=== PATIENT | female | born 1955 | race Caucasian/White ===

== ENCOUNTER → 2018-05-20 | Outpatient (CLI) | payer BC ==
[2018-05-20 18:49] LABS: T4, Free (Free Thyroxine) 1.5 ng/dL (0.80-1.80)
== END | disposition home or self-care (01) ==
LOC: LABWHC1 13:31
DX: E03.9 Hypothyroidism, unspecified (principal)
CPT/HCPCS: 36415; 84439; 84443; 84481

== ENCOUNTER → 2018-09-08 | Outpatient (CLI) | payer BC ==
--- NOTE | 2018-09-10 08:25 | MM ---
Reason for exam: screening (asymptomatic). Last mammogram was performed 1 year and 1 month ago. History: Patient is postmenopausal. Family history of breast cancer in mother at age 61, breast cancer in sister, and breast cancer in maternal cousin. Benign cyst aspiration of the left breast. Physical Findings: A clinical breast exam by your physician is recommended on an annual basis and results should be correlated with mammographic findings. MG 3D Screening Mammo W/Cad Bilateral CC and MLO view(s) were taken. Prior study comparison: August 21, 2017, mammogram, performed at [facility] [place]. The breast tissue is heterogeneously dense. This may lower the sensitivity of mammography. Medial asymmetric density left breast increased and incompletely disperses on 3D. ASSESSMENT: Incomplete: need additional imaging evaluation, BI-RAD 0 RECOMMENDATION: Special view mammogram of the left breast. If lesion persists on supplemental views, image directed ultrasound is recommended. [facility] will attempt to contact patient to return for supplemental views and ultrasound if indicated.
== END | disposition home or self-care (01) ==
LOC: RADMAMWWP 13:21
PROVIDERS: ATTEND Obstetrics & Gynecology
DX: Z12.31 Encounter for screening mammogram for malignant neoplasm of breast (principal); Z80.3 Family history of malignant neoplasm of breast
CPT/HCPCS: 77063; 77067

== ENCOUNTER → 2018-09-14 | Outpatient (CLI) | payer BC ==
--- NOTE | 2018-09-14 14:32 | MM ---
Reason for exam: additional evaluation requested from abnormal screening. Last mammogram was performed less than 1 month ago. History: Patient is postmenopausal. Family history of breast cancer in mother at age 61, breast cancer in sister, and breast cancer in maternal cousin. Benign cyst aspiration of the left breast. Physical Findings: Nurse did not find any significant physical abnormalities on exam. MG 3D Work Up W/Cad LT Spot compression CC, spot compression MLO, and ML view(s) were taken of the left breast. Prior study comparison: September 08, 2018, bilateral MG 3d screening mammo w/cad. August 21, 2017, mammogram, performed at [facility]. The breast tissue is heterogeneously dense. This may lower the sensitivity of mammography. Benign calcifications in the left breast. The previously seen abnormality resolves on additional views and appears as fibroglandular tissue compatible with summation. No suspicious abnormality. These results were verbally communicated with the patient and result sheet given to the patient on 09/14/18. ASSESSMENT: Benign, BI-RAD 2 RECOMMENDATION: Return to routine screening mammogram schedule for both breasts.
== END | disposition home or self-care (01) ==
LOC: RADMAMWWP 13:27
PROVIDERS: ATTEND Obstetrics & Gynecology
DX: R92.8 Other abnormal and inconclusive findings on diagnostic imaging of breast (principal)
CPT/HCPCS: 77061; 77065

== ENCOUNTER → 2019-12-20 | Outpatient (CLI) | payer MEDICARE, OTHER ==
--- NOTE | 2019-12-20 13:31 | BD ---
EXAMINATION TYPE: Axial Bone Density DATE OF EXAM: 12/20/2019 COMPARISON: NONE CLINICAL HISTORY: Height: 60.5 IN Weight: 168 LBS FRAX RISK QUESTIONS: Family History (Parent hip fracture): YES FATHER Secondary Osteoporosis: 3. Menopause before 45: AGE 46 RISK FACTORS HISTORY OF: Active: YES Postmenopausal woman: AGE 46 MEDICATIONS: Thyroid Medications: YES Which medication: Synthroid How Lon+ YEARS Additional Medications: CALCIUM, VIT D, SYNTHROID, MULTI VIT, B12, CRANBERRY EXAM MEASUREMENTS: Bone mineral densitometry was performed using the [employer] System. Bone mineral density as measured about the Lumbar spine is: ----- L1-L4(G/cm2): 1.062 T Score Values are as follows: ----- L2: -0.5 ----- L3: -0.9 ----- L4: -1.6 ----- L1-L4: -1.0 Bone mineral density BASELINE Bone mineral density about the R hip (g/cm2): 0.833 Bone mineral density about the L hip (g/cm2): 0.879 T Score values are as follows: -----R Neck: -1.5 -----L Neck: -1.1 -----R Total: -0.1 -----L Total: 0.5 Bone mineral density BASELINE IMPRESSION: No evidence for osteoporosis or osteopenia at this time. NOTE: T-SCORE=SD OF THE YOUNG ADULT MEAN.
--- NOTE | 2019-12-26 11:02 | MM ---
Reason for exam: screening (asymptomatic). Last mammogram was performed 1 year and 3 months ago. History: Patient is postmenopausal. Family history of breast cancer in mother at age 61, breast cancer in sister, and breast cancer in maternal cousin. Benign cyst aspiration of the left breast. Physical Findings: A clinical breast exam by your physician is recommended on an annual basis and results should be correlated with mammographic findings. MG 3D Screening Mammo W/Cad Bilateral CC and MLO view(s) were taken. Prior study comparison: September 14, 2018, left breast MG 3d work up w/cad LT. September 08, 2018, bilateral MG 3d screening mammo w/cad. There are scattered fibroglandular densities. There is chronic nodularity in the left breast. No significant changes when compared with prior studies. ASSESSMENT: Benign, BI-RAD 2 RECOMMENDATION: Routine screening mammogram of both breasts in 1 year.
== END | disposition home or self-care (01) ==
LOC: RADMAMWWP 10:07
PROVIDERS: ATTEND Obstetrics & Gynecology
DX: Z12.31 Encounter for screening mammogram for malignant neoplasm of breast (principal); Z13.820 Encounter for screening for osteoporosis; M89.9 Disorder of bone, unspecified; M85.80 Other specified disorders of bone density and structure, unspecified site
CPT/HCPCS: 77063; 77067; 77080

== ENCOUNTER → 2020-01-31 | Outpatient (CLI) | payer MEDICARE, OTHER ==
--- NOTE | 2020-01-31 16:01 | US ---
EXAMINATION TYPE: US thyroid st tissue head/neck DATE OF EXAM: 01/31/2020 COMPARISON: US CLINICAL HISTORY: E04.2 Nontoxic multinodular goiter. F/U previous, right lobe of thyroid removed yea rs ago GLAND SIZE: Right Lobe: Surgically absent Left Lobe: 2.6 x 1.0 x 0.9 cm Overall Parenchyma: heterogeneous Isthmus Thickness: 0.3 cm NODULES LEFT: # of nodules measured on left: 2 1. 0.5 X 0.4 x 0.4 cm echogenic solid nodule at the lower pole with well-defined margins; This nod ule is wider than tall and shows intranodular vascularity. Prior size: 0.5 x 0.4 x 0.4 cm 2. 0.6 X 0.4 x 0.4 cm echogenic solid nodule at the mid pole with well-defined margins; This nodule is wider than tall and shows intranodular vascularity. Prior size: 0.5 x 0.5 x 0.4 cm Bilateral neck scanned, no evidence of lymphadenopathy. Stable nodules left lobe. Marked heterogeneit y of the echotexture of the left lobe of the thyroid is noted. IMPRESSION: Subcentimeter left thyroid nodules, correlate for underlying thyroiditis, postop change
== END | disposition home or self-care (01) ==
LOC: RADUSWWP 14:06
PROVIDERS: ATTEND Internal Medicine Endocrinology, Diabetes & Metabolism
DX: E04.1 Nontoxic single thyroid nodule (principal); Z98.890 Other specified postprocedural states
CPT/HCPCS: 76536

== ENCOUNTER → 2020-03-06 | Outpatient (CLI) | payer MEDICARE, OTHER | END | disposition home or self-care (01) | LOC: LABWHC1 08:54 | PROVIDERS: ATTEND Internal Medicine | DX: Z03.818 Encounter for observation for suspected exposure to other biological agents ruled out (principal) | CPT/HCPCS: U0003; C9803 ==

== ENCOUNTER → 2020-04-19 | Outpatient (CLI) | payer MEDICARE, OTHER ==
[2020-04-19 11:07] LABS: T4, Free (Free Thyroxine) 1.5 ng/dL (0.80-1.80)
== END | disposition home or self-care (01) ==
LOC: LABWHC1 07:20
PROVIDERS: ATTEND Internal Medicine Endocrinology, Diabetes & Metabolism
DX: E04.2 Nontoxic multinodular goiter (principal)
CPT/HCPCS: 36415; 84439; 84443

== ENCOUNTER → 2020-05-02 | Outpatient (CLI) | payer MEDICARE, OTHER ==
--- NOTE | 2020-05-02 10:40 | XR ---
EXAMINATION TYPE: XR hand limited RT DATE OF EXAM: 05/02/2020 CLINICAL HISTORY: pain TECHNIQUE: Frontal, lateral images of the right hand are obtained. COMPARISON: None. FINDINGS: There is no acute fracture/dislocation evident. The joint spaces appear within normal limi ts. The overlying soft tissue appears unremarkable. IMPRESSION: There is no acute fracture or dislocation ICD 10 NO FRACTURE, INITIAL EVALUATION
== END | disposition home or self-care (01) ==
LOC: RADXRMAIN 10:10
PROVIDERS: ATTEND Internal Medicine
DX: M79.641 Pain in right hand (principal)

== ENCOUNTER → 2020-11-29 | Outpatient (CLI) | payer MEDICARE, OTHER | END | disposition home or self-care (01) | LOC: LABWHC1 07:30 | PROVIDERS: ATTEND Internal Medicine | DX: E03.9 Hypothyroidism, unspecified (principal) | CPT/HCPCS: 36415; 84439; 84443; 84480 ==

== ENCOUNTER → 2020-12-20 | Outpatient (CLI) | payer MEDICARE, OTHER ==
--- NOTE | 2020-12-24 11:36 | MM ---
Reason for exam: screening (asymptomatic). Last mammogram was performed 1 year ago. History: Patient is postmenopausal. Family history of breast cancer in mother at age 61, breast cancer in sister, and breast cancer in maternal cousin. Benign cyst aspiration of the left breast. Physical Findings: A clinical breast exam by your physician is recommended on an annual basis and results should be correlated with mammographic findings. MG 3D Screening Mammo W/Cad Bilateral CC and MLO view(s) were taken. Prior study comparison: December 20, 2019, bilateral MG 3d screening mammo w/cad. September 08, 2018, bilateral MG 3d screening mammo w/cad. August 21, 2017, mammogram, performed at [facility]. The breast tissue is heterogeneously dense. This may lower the sensitivity of mammography. There is chronic nodularity in the right breast. Possible subtle distortion left upper inner quadrant. ASSESSMENT: Incomplete: need additional imaging evaluation, BI-RAD 0 RECOMMENDATION: Special view mammogram of the left breast. (3D) Ultrasound of the left breast. (upper inner quadrant) [facility] will attempt to contact patient to return for supplemental views and ultrasound.
== END | disposition home or self-care (01) ==
LOC: RADMAMWWP 15:28
PROVIDERS: ATTEND Obstetrics & Gynecology
DX: Z12.31 Encounter for screening mammogram for malignant neoplasm of breast (principal); Z80.3 Family history of malignant neoplasm of breast
CPT/HCPCS: 77063; 77067

== ENCOUNTER → 2021-01-16 | Outpatient (CLI) | payer MEDICARE, OTHER ==
--- NOTE | 2021-01-16 10:46 | MM ---
Reason for exam: additional evaluation requested from abnormal screening. Last mammogram was performed 1 month ago. History: Patient is postmenopausal. Family history of breast cancer in mother at age 61, breast cancer in sister at age 50, and breast cancer in maternal cousin at age 40. Benign cyst aspiration of the left breast. Physical Findings: Nurse did not find any significant physical abnormalities on exam. MG 3D Work Up W/Cad LT Spot compression CC, spot compression MLO, and LM view(s) were taken of the left breast. Prior study comparison: December 20, 2020, bilateral MG 3d screening mammo w/cad. December 20, 2019, bilateral MG 3d screening mammo w/cad. The breast tissue is heterogeneously dense. This may lower the sensitivity of mammography. Distortion improved. Increasing microcalcifications inner upper left breast. Tissue biopsy recommended. These results were verbally communicated with the patient and result sheet given to the patient on 01/16/21. ASSESSMENT: Suspicious, BI-RAD 4 RECOMMENDATION: Ultrasound and stereotactic core biopsy of the left breast. (left calcifications) Called Dr. Ellison's office with mammographic findings and has scheduled an appointment for the patient for 01/31/21 at 7:[address] Lund. Biopsy scheduled for 01/31/21 at 8:00. PRELIMINARY REPORT CALLED AND FAXED TO DR. LUND ON 01/16/21.
--- NOTE | 2021-01-16 10:47 | USB ---
Reason for exam: additional evaluation requested from abnormal screening. History: Patient is postmenopausal. Family history of breast cancer in mother at age 61, breast cancer in sister at age 50, and breast cancer in maternal cousin at age 40. Benign cyst aspiration of the left breast. US Breast Workup Limited LT Left limited breast ultrasound including focal area of concern, retroareolar and axilla demonstrates no cystic or solid lesion seen. No suspicious mass seen. Biopsy of left breast calcifications recommended. These results were verbally communicated with the patient and result sheet given to the patient on 01/16/21. ASSESSMENT: Suspicious, BI-RAD 4 RECOMMENDATION: Stereotactic core biopsy of the left breast. (left calcifications) Called Dr. Ellison's office with mammographic findings and has scheduled an appointment for the patient for 01/31/21 at 7:[address] Lund. Biopsy scheduled for 01/31/21 at 8:00. PRELIMINARY REPORT CALLED AND FAXED TO DR. LUND ON 01/16/21.
== END | disposition home or self-care (01) ==
LOC: RADMAMWWP 06:58
PROVIDERS: ATTEND Obstetrics & Gynecology
DX: R92.0 Mammographic microcalcification found on diagnostic imaging of breast (principal); Z78.0 Asymptomatic menopausal state; Z80.3 Family history of malignant neoplasm of breast
CPT/HCPCS: 77065; 76642; G0279; 77061

== ENCOUNTER → 2021-01-31 | Outpatient (CLI) | payer MEDICARE, OTHER ==
--- NOTE | 2021-01-31 08:07 | P.GSHP ---
History of Present Illness H&P Date: 01/31/21 Chief Complaint: Abnormal mammogram Anneliese is a 65 year old white female seen in consultation for Dr. Nickerson with an abnormal mammogram revealing microcalcifications of concern in the left breast. This was noted on a routine screening mammogram. She subsequently had a diagnostic left breast mammogram and ultrasound. Nothing was identified on the ultrasound. Secondary to the microcalcifications noted on the left breast mammogram, stereotactic core biopsy was recommended. She does not feel any lumps masses or nodules of concern in either breast. She is not complaining of any nipple discharge or breast pain. She's not had any recent trauma or infection in the breast. She has not had any surgery of her breast. Caffiene: 2 cups coffee/day nicotine: none chocolate: daily Family History: mother: 60's breast cancer 3 years later from [place] sister: Lobular carcinoma in situ maternal cousin: breast cancer DX in 402, had a recurrence in her 60's form this brother: bladder cancer in 70's maternal grandfather: cancer lung a smoker Hormonal History: menarche: 11 , breast fed: no, age at first : 23 menopause: 46 BCP: 5 years hormones: none Surgical history: Half of thyroid removed 3 Medical history: Trigger thumb hypothyroid Social History: nicotine: stopped 2008; did smoke starting in high school for 8 years, and again at 39 for 10 years, about 1/PPD alcohol: rarely drugs: none - Constitutional Constitutional: Denies chills, Denies fever - EENT Eyes: denies blurred vision Ears: deny: decreased hearing, tinnitus Ears, nose, mouth and throat: Denies headache, Denies sore throat - Breasts Breasts: bilateral: as per HPI - Cardiovascular Cardiovascular: Denies chest pain, Denies shortness of breath - Respiratory Respiratory: Denies cough, Denies 7 - Gastrointestinal Comment: IBBS Gastrointestinal: Denies abdominal pain, Denies diarrhea, Denies nausea, Denies vomiting - Genitourinary (Female) Genitourinary: Denies dysuria, Denies hematuria - Menstruation Menstruation: Reports postmenopausal - Musculoskeletal Comment: right trigger thumb Musculoskeletal: Reports as per HPI, Reports myalgias - Integumentary Integumentary: Denies pruritus, Denies rash - Neurological Neurological: Denies numbness, Denies weakness - Psychiatric Psychiatric: Denies anxiety, Denies depression - Endocrine Comment: hypothyroid - Hematologic/Lymphatic Comment: none - Allergic/Immunologic Allergic/Immunologic: Reports as per HPI, Reports seasonal allergies Medications and Allergies Home Medications Medication Instructions Recorded Confirmed Type Levothyroxine Sodium [Synthroid] 112 mcg PO DAILY 01/22/21 01/31/21 History Allergies Allergy/AdvReac Type Severity Reaction Status Date / Time amoxicillin AdvReac Rash/Hives Verified 01/31/21 07:15 Penicillins AdvReac Rash/Hives Verified 01/31/21 07:15 sulfamethoxazole AdvReac Rash/Hives Verified 01/31/21 07:15 Surgical - Exam - General well developed, well nourished, no distress - Eyes normal ocular movement - ENT no hearing loss, no congestion - Neck no masses, trachea midline - Respiratory normal expansion, normal respiratory effort, clear to auscultation - Cardiovascular Rhythm: regular Heart Sounds: normal: S1, S2 - Abdomen Abdomen: soft, non tender, no guarding, no rigid, no rebound - Integumentary normal turgor - Neurologic no disoriented, no combative - Musculoskeletal normal gait, normal posture - Psychiatric oriented to time, oriented to person, oriented to place, speech is normal Breast Exam: BRA: 40C inspection: grade 2 ptosis bilateral Palpation: Right breast: Multiple positional exam fibrocystic changes, no dominant masses or nodules of concern, slightly larger than left breast Right axilla: No adenopathy of concern left breast : Multiple positional exam fibrocystic changes, no dominant masses or nodules of concern Left axilla: No adenopathy of concern Fungal infection under the right breast Results Mammogram and ultrasound personally reviewed with Dr. Renee from radiology /microcalcifications of concern noted in left breast; no lesions of concern noted on ultrasound Assessment and Plan Assessment: Impression: 1. abnormal left breast mammogram 2. Fungal infection under right breast 3. Hypothyroid Plan: 1. Stereotactic core biopsy left breast 2. Nystatin under her right breast Risks and benefits of the procedure were discussed with the patient. Risks include but are not limited to bleeding, infection, reaction to the anesthetic. If the specimen were to be discordant and open biopsy may be recommended. She also understands that this specimen were to be worrisome for an open resection in the operating room may be necessary. Alternatives such as watchful waiting resection in the operating room were discussed but not recommended. Cc: Dr. Nickerson, Dr. Ellison
[2021-01-31 10:50] VITALS: BP 112/80; PULSE 74; RESP 12; TEMP 98.6
== END ==
LOC: WWCWWP 07:02
PROVIDERS: ATTEND Surgery
DX: R92.8 Other abnormal and inconclusive findings on diagnostic imaging of breast (principal); B48.8 Other specified mycoses; E03.9 Hypothyroidism, unspecified; Z88.1 Allergy status to other antibiotic agents; Z88.0 Allergy status to penicillin; Z88.2 Allergy status to sulfonamides

== ENCOUNTER → 2021-01-31 | Day surgery (SDC) | payer MEDICARE, OTHER ==
[2021-01-31 07:27] VITALS: RESP 12
--- NOTE | 2021-01-31 08:39 | P.PCN ---
Date of Procedure: 01/31/21 Preoperative Diagnosis: Microcalcifications of concern in the left breast Postoperative Diagnosis: Same Procedure(s) Performed: Stereotactic core biopsy left breast Anesthesia: local Surgeon: Anabell Lund Pathology: other (Breast tissue/microcalcifications noted in specimen radiograph) Condition: stable Indications for Procedure: Increasing microcalcifications left breast upper inner quadrant Operative Findings: Microcalcifications of concern noted in biopsy specimen Description of Procedure: Nivia is a 65-year-old white female who had a routine screening mammogram performed on 8520. Additional views were requested of the left breast. On the additional views microcalcifications were noted in the upper inner area which were increasing. An ultrasound was performed which did not reveal any specific lesions of concern. The patient was recommended to undergo a stereotactic core biopsy. She was seen in consultation and breast examination was performed. No dominant masses or nodules of concern were noted in either breast. Alternatives such as watchful waiting resection in the operating room were discussed but not recommended. Risks of the procedure were discussed with the patient which included but were not limited to bleeding, infection, reaction to the anesthetic. The patient understood and wished to proceed. She also understood that depending on the results of the biopsy that resection in the operating room may be necessary. The patient was taken to the stereotactic core biopsy room. She was positioned prone on the lo-rad table. A gold tooler film was obtained. The lesion of concern was identified. A medial to lateral approach was utilized. The lesion was targeted. The breast was prepped using Betadine. 20 mL of 1% lidocaine were used to anesthetize the area of concern. A 9-gauge vacuum-assisted core rotating biopsy needle was driven to the correct coordinates. A prefire film was obtained. The needle was noted to be in the correct location. The needle was fired. A post-fire film again revealed the needle to be in the correct location. 10 core specimens were obtained. Radiograph of the specimen revealed that the calcifications of concern had been sampled. A secure marked top pack clip was placed. This was noted to be in the correct location. The specimens were sent to pathology. The patient will follow-up with Dr. Thompson next week.
[2021-01-31 08:44] VITALS: BP 112/80; PULSE 74; TEMP 98.6
--- NOTE | 2021-01-31 18:56 | MM ---
EXAMINATION TYPE: MG stereo VAD BX LT DATE OF EXAM: 01/31/2021 COMPARISON: 12/20/2020 and 01/16/2021 CLINICAL HISTORY: 65-year-old female R92.8, abnormal mammogram TECHNIQUE: Stereotactic guided core biopsy of the left breast. FINDINGS: The procedure of stereotactic guided core biopsy was explained to the patient. Benefits, alternatives, and risks were discussed. An informed consent was then obtained. [facility]. Shortness pathway was a medial approach. I performed the localization, then surgeon, Dr. Lund performed the remainder of the procedure. A vacuum assisted biopsy gun was used to obtain multiple core samples. The patient tolerated the procedure well without any immediate complication. The patient was kept in the radiology department for short stay after the procedure and then discharged home in stable condition. Targeted calcifications are identified in specimen mammogram. Post biopsy mammogram shows the clip to appear in satisfactory position relative to the targeted area of concern on the preprocedure images. IMPRESSION: SUCCESSFUL, UNCOMPLICATED STEREOTACTIC GUIDED CORE BIOPSY OF MEDIAL LEFT BREAST MICROCALCIFICATIONS. FULL PATHOLOGY RESULTS TO FOLLOW. If negative results, six- month postbiopsy follow-up mammogram can be performed. 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 Negative for in situ or invasive carcinoma. See note. Recommendation Follow up mammogram of the left breast in 6 months. SHIREEN
--- NOTE | 2021-02-07 16:37 | P.PN ---
Progress Note - Text Progress Note Date: 02/07/21 I have called the patient with the results of her left breast stereotactic core biopsy. This revealed fibroadenomatoid stromal hyperplasia with focal microcalcification. The specimen was felt to be benign specific. There is a notation made of the incidence of a benign fibroadenoma considered due to focally increased quantity of fibrotic fibroadenomatoid stromal hyperplasia within one block. The patient states that she is feeling well with no complaints related to the procedure. Therefore, she has chosen to forego her postoperative visit. She will be seen in 6 months with a repeat left breast mammogram. CC: Dr. Ellison
== END ==
LOC: RADMAMWWP 07:04
PROVIDERS: ATTEND Surgery
DX: D24.2 Benign neoplasm of left breast (principal); R92.8 Other abnormal and inconclusive findings on diagnostic imaging of breast
CPT/HCPCS: 88305; 19081; A4648; J2001

== ENCOUNTER → 2021-02-22 | Outpatient (CLI) | payer MEDICARE, OTHER | END | disposition home or self-care (01) | LOC: LABWHC1 07:08 | PROVIDERS: ATTEND Internal Medicine | DX: E03.9 Hypothyroidism, unspecified (principal) | CPT/HCPCS: 36415; 84443 ==

== ENCOUNTER → 2021-07-22 | Outpatient (CLI) | payer MEDICARE, OTHER ==
[2021-07-22 15:01] LABS: HCT 45.3 % (37.2-46.3); HGB 14.9 g/dL (12.0-15.0); MCH 29.9 pg (27.0-32.0); MCHC 32.9 g/dL (32.0-37.0); NRBC Per 100 WBC 0 /100 WBCS (0.0-0.0); Platelet Count 301 X 10*3/uL (140-440); RBC 4.98 X 10*6/uL (4.10-5.20); RDW 12.8 % (11.5-14.5); WBC 5.34 X 10*3/uL (4.50-10.00)
[2021-07-22 16:01] LABS: ALT 27 U/L (8-44); AST 20 U/L (13-35); African American GFR (CKD) 76.4 (60.0-200.0); Albumin 4.8 g/dL (3.8-4.9); Albumin/Globulin Ratio 2.59 (1.60-3.17); Alkaline Phosphatase 94 U/L (41-126); BUN/Creat Ratio 16.61 Ratio (12.00-20.00); Calcium 10.1 mg/dL (8.7-10.3); Carbon Dioxide 22.9 mmol/L (20.0-27.5); Chloride 105 mmol/L (96-109); Chol/HDL Ratio 2.75 Ratio; Globulin 1.9 g/dL (1.6-3.3); Glucose 95 mg/dL (70-110); Non-African American GFR(CKD) 65.9 (60.0-200.0); Potassium 4.6 mmol/L (3.5-5.5); Sodium 142 mmol/L (135-145); Total Protein 6.7 g/dL (6.2-8.2)
[2021-07-22 16:05] LABS: Appearance,Urine Turbid (Clear); Bacteria,Urine None Seen /HPF (None Seen); Bilirubin,Urine Negative (Negative); Blood,Urine Negative (Negative); Color,Urine Yellow (Yellow); Ketones,Urine Negative (Negative); Leukocyte Esterase,Urine Trace (Negative); Nitrite,Urine Negative (Negative); PH, Urine 7.5 (5.0-8.0); Protein,Urine Negative (Negative); RBC,Urine 0-2 /HPF (0-2); Specific Gravity,Urine 1.021 (1.001-1.030); WBC,Urine 0-5 /HPF (0-5)
== END | disposition home or self-care (01) ==
LOC: LABWHC1 07:24
PROVIDERS: ATTEND Internal Medicine
DX: E78.5 Hyperlipidemia, unspecified (principal); E03.9 Hypothyroidism, unspecified; M51.34 Other intervertebral disc degeneration, thoracic region
CPT/HCPCS: 36415; 80053; 80061; 81001; 84443; 85027

== ENCOUNTER → 2021-07-26 | Outpatient (CLI) | payer MEDICARE, OTHER ==
--- NOTE | 2021-07-26 11:31 | MM ---
Reason for exam: follow-up at short interval from prior study. Last mammogram was performed 6 months ago. History: Patient is postmenopausal. Family history of breast cancer in mother at age 61, breast cancer in sister at age 50, and breast cancer in maternal cousin at age 40. Benign MG stereo VAD BX LT of the left breast, January 31, 2021. Benign cyst aspiration of the left breast. Physical Findings: A clinical breast exam by your physician is recommended on an annual basis and results should be correlated with mammographic findings. MG 3D Diag Mammo W/Cad LT CC and MLO view(s) were taken of the left breast. Prior study comparison: January 16, 2021, left breast MG 3d work up w/cad LT. December 20, 2020, bilateral MG 3d screening mammo w/cad. The breast tissue is heterogeneously dense. This may lower the sensitivity of mammography. Previous mammotome biopsy in the left breast. These results were verbally communicated with the patient and result sheet given to the patient on 07/26/21. ASSESSMENT: Benign, BI-RAD 2 RECOMMENDATION: Return to routine screening mammogram schedule for both breasts. Back on schedule for December 2021.
== END | disposition home or self-care (01) ==
LOC: RADMAMWWP 10:45
PROVIDERS: ATTEND Surgery
DX: R92.8 Other abnormal and inconclusive findings on diagnostic imaging of breast (principal); Z78.0 Asymptomatic menopausal state; Z80.3 Family history of malignant neoplasm of breast
CPT/HCPCS: 77065; G0279; 77061

== ENCOUNTER → 2021-08-08 | Outpatient (CLI) | payer MEDICARE, OTHER ==
[2021-08-08 16:11] VITALS: BP 116/79; PULSE 84; RESP 17; TEMP 97.8
--- NOTE | 2021-08-08 16:38 | P.PN ---
Subjective Progress Note Date: 08/08/21 Principal diagnosis: fibrocystic breast changes Anneliese is a 65 year old white female seen in consultation for Dr. Nickerson with an abnormal mammogram revealing microcalcifications of concern in the left breast. This was noted on a routine screening mammogram. She subsequently had a diagnostic left breast mammogram and ultrasound. Nothing was identified on the ultrasound. Secondary to the microcalcifications noted on the left breast mammogram, stereotactic core biopsy was recommended. She does not feel any lumps masses or nodules of concern in either breast. She is not complaining of any nipple discharge or breast pain. She's not had any recent trauma or infecti on in the breast. She has not had any surgery of her breast. The patient on 01-31-21 underwent a left breast stero-biopsy. The pathology was benign concordant. She had a repeat left breast mammogram on 07-26-21 which was benign BIRAD 2. The patient does not feel anything that she is concerned about in either breast. Caffiene: 2 cups coffee/day nicotine: none chocolate: daily Family History: mother: 60's breast cancer 3 years later from [place] sister: Lobular carcinoma in situ maternal cousin: breast cancer DX in 402, had a recurrence in her 60's form this brother: bladder cancer in 70's maternal grandfather: cancer lung a smoker Hormonal History: menarche: 11 , breast fed: no, age at first : 23 menopause: 46 BCP: 5 years hormones: none Surgical history: Half of thyroid removed 3 Medical history: Trigger thumb hypothyroid Social History: nicotine: stopped 2008; did smoke starting in high school for 8 years, and again at 39 for 10 years, about 1/PPD alcohol: rarely drugs: none - Constitutional Constitutional: Denies chills, Denies fever - EENT Eyes: denies blurred vision Ears: deny: decreased hearing, tinnitus Ears, nose, mouth and throat: Denies headache, Denies sore throat - Breasts Breasts: bilateral: as per HPI - Cardiovascular Cardiovascular: Denies chest pain, Denies shortness of breath - Respiratory Respiratory: Denies cough - Gastrointestinal Comment: IBBS Gastrointestinal: Denies abdominal pain, Denies diarrhea, Denies nausea, Denies vomiting - Genitourinary (Female) Genitourinary: Denies dysuria, Denies hematuria - Menstruation Menstruation: Reports postmenopausal - Musculoskeletal Comment: right trigger thumb Musculoskeletal: Reports as per HPI, Reports myalgias - Integumentary Integumentary: Denies pruritus, Denies rash - Neurological Neurological: Denies numbness, Denies weakness - Psychiatric Psychiatric: Denies anxiety, Denies depression - Endocrine Comment: hypothyroid - Hematologic/Lymphatic Comment: none - Allergic/Immunologic Allergic/Immunologic: Reports as per HPI, Reports seasonal allergies Objective - Vital Signs Vital signs: Vital Signs Temp 97.8 F 08/08/21 16:09 Pulse 84 08/08/21 16:09 Resp 17 08/08/21 16:09 BP 116/79 08/08/21 16:09 Pulse Ox 100 08/08/21 16:09 Intake & Output 08/07/21 08/08/21 08/08/21 18:59 06:59 18:59 Weight 74.843 kg - Exam BMI 30.2 - Constitutional General appearance: Present: cooperative - EENT Eyes: Present: EOMI ENT: Present: hearing grossly normal - Neck Neck: Present: normal ROM - Respiratory Respiratory: bilateral: CTA - Cardiovascular Rhythm: regular Heart sounds: normal: S1, S2 - Gastrointestinal General gastrointestinal: Present: soft - Integumentary Integumentary: Present: normal turgor - Musculoskeletal Musculoskeletal: Present: gait normal - Psychiatric Psychiatric: Present: A&O x's 3, appropriate affect, intact judgment & insight - Additional findings Additional findings: Breast Exam: BRA: 38C inspection: right breast slightly larger than left breast, bilateral grade 2/3 ptosis Outpatient: Right breast: Multipositional exam no dominant masses or nodules of concern Right axilla: No axillary adenopathy of concern Left breast: Multi-positional exam no dominant masses or nodules of concern Left axilla: No adenopathy of concern Assessment and Plan Assessment: Impression: Fibrocystic breast changes Plan: Bilateral mammogram in 6 months with physician exam at that time Patient will most likely have the mammogram ordered through [employer] Dr. Powers's office Cc: Dr. Ellison, Dr. Fry
== END ==
LOC: WWCWWP 15:20
PROVIDERS: ATTEND Surgery
DX: N60.19 Diffuse cystic mastopathy of unspecified breast (principal); R92.8 Other abnormal and inconclusive findings on diagnostic imaging of breast; E03.9 Hypothyroidism, unspecified; Z88.0 Allergy status to penicillin; Z88.1 Allergy status to other antibiotic agents; Z88.2 Allergy status to sulfonamides

== ENCOUNTER → 2021-11-08 | Outpatient (CLI) | payer MEDICARE, OTHER ==
--- NOTE | 2021-11-08 09:43 | XR ---
EXAMINATION TYPE: XR wrist complete RT, XR hand complete RT DATE OF EXAM: 11/08/2021 CLINICAL HISTORY: pain TECHNIQUE: Frontal, lateral and oblique images of the right hand and right wrist are obtained. COMPARISON: None. FINDINGS: There is no acute fracture/dislocation evident. The joint spaces appear within normal limi ts. The overlying soft tissue appears unremarkable. IMPRESSION: There is no acute fracture or dislocation ICD 10 NO FRACTURE, INITIAL EVALUATION
== END | disposition home or self-care (01) ==
LOC: RADXRMAIN 09:08
PROVIDERS: ATTEND Nurse Practitioner Family
DX: G56.01 Carpal tunnel syndrome, right upper limb (principal); M79.644 Pain in right finger(s)

== ENCOUNTER → 2022-01-28 | Outpatient (CLI) | payer MEDICARE, OTHER ==
[2022-01-28 11:07] LABS: T4, Free (Free Thyroxine) 1.27 ng/dL (0.800-1.800)
== END | disposition home or self-care (01) ==
LOC: LABWHC1 07:09
PROVIDERS: ATTEND Family Medicine
DX: E03.8 Other specified hypothyroidism (principal)
CPT/HCPCS: 36415; 84439; 84443

== ENCOUNTER → 2022-02-18 | Outpatient (CLI) | payer MEDICARE, OTHER ==
--- NOTE | 2022-02-19 18:58 | MM ---
Reason for Exam: Screening (asymptomatic). Last mammogram was performed 1 year(s) and 2 month(s) ago. Patient History: Menarche at age 11. First Full-Term at age 23. Postmenopausal. Benign Cyst Aspiration on the left side. 01/31/2021, Benign Core Biopsy on the left side. Maternal cousin had breast cancer, age 40. Sister had breast cancer, age 50. Mother had breast cancer, age 61. Risk Values: Maira 5 year model risk: 8.0%. NCI Lifetime model risk: 25.0%. Prior Study Comparison: 12/20/2020 Bilateral Screening Mammogram, [facility]. 01/16/2021 Left Diagnostic Mammogram, [facility] WITH [facility]. 07/26/2021 Left Diagnostic Mammogram, [facility]. Tissue Density: The breast tissue is heterogeneously dense. This may lower the sensitivity of mammography. Findings: Analyzed By CAD. Chronic nodularity is within the right breast. Benign-appearing scattered calcifications are present bilaterally No suspicious groups of microcalcifications, spiculated or lobular masses, architectural distortion or other secondary signs of malignancy are mammographically apparent. Overall Assessment: Benign, BI-RAD 2 Management: Screening Mammogram of both breasts in 1 year. A negative mammogram report should not preclude additional follow up of suspicious palpable abnormalities. Patient should continue monthly self breast exam. A clinical breast exam by your physician is recommended on an annual basis and results should be correlated with mammographic findings. Electronically signed and approved by: Vaibhav Renee D.O. Radiologis
== END | disposition home or self-care (01) ==
LOC: RADMAMWWP 08:12
PROVIDERS: ATTEND Surgery
DX: Z12.31 Encounter for screening mammogram for malignant neoplasm of breast (principal); Z78.0 Asymptomatic menopausal state; Z80.3 Family history of malignant neoplasm of breast
CPT/HCPCS: 77063; 77067

== ENCOUNTER → 2022-02-27 | Outpatient (CLI) | payer MEDICARE, OTHER ==
[2022-02-27 14:30] VITALS: BP 131/83; PULSE 89; RESP 17; TEMP 98.9
--- NOTE | 2022-02-27 14:52 | P.PN ---
Subjective Progress Note Date: 02/27/22 Principal diagnosis: fibrocystic breast changes fibrocystic breast changes Anneliese is a 66 year old white female seen in consultation for Dr. Nickerson with an abnormal mammogram revealing microcalcifications of concern in the left breast. This was noted on a routine screening mammogram. She subsequently had a diagnostic left breast mammogram and ultrasound. Nothing was identified on the ultrasound. Secondary to the microcalcifications noted on the left breast mammogram, stereotactic core biopsy was recommended. She does not feel any lumps masses or nodules of concern in either breast. She is not complaining of any nipple discharge or breast pain. She's not had any recent trauma or infection in the breast. She has not had any surgery of her breast. The patient on 01-31-21 underwent a left breast stero-biopsy. The pathology was benign concordant. She had a repeat left breast mammogram on 07-26-21 which was benign BIRAD 2. The patient does not feel anything that she is concerned about in either breast. 03-09-22 Anneliese is not complaining of any masses or nodules of concern in either breast. She had a bilateral mammogram performed on . This was a BIRADS 2. Maira risk evaluation 5 year risk 8% Lifetime risk 25% We evaluated by Maira risk evaluation on evaluation the 5 year risk is 3.9% in the lifetime risk is 12.1%. Based on these numbers the patient has declined chemoprevention. Caffiene: 2 cups coffee/day nicotine: none chocolate: daily Family History: mother: 60's breast cancer 3 years later from [place] sister: Lobular carcinoma in situ maternal cousin: breast cancer DX in 42, had a recurrence in her 60's form this brother: bladder cancer in 70's maternal grandfather: cancer lung a smoker Hormonal History: menarche: 11 , breast fed: no, age at first : 23 menopause: 46 BCP: 5 years hormones: none Surgical history: Half of thyroid removed 3 Medical history: Trigger thumb hypothyroid Social History: nicotine: stopped 2008; did smoke starting in high school for 8 years, and again at 39 for 10 years, about 1/PPD alcohol: rarely drugs: none - Constitutional Constitutional: Denies chills, Denies fever - EENT Eyes: denies blurred vision Ears: deny: decreased hearing, tinnitus Ears, nose, mouth and throat: Denies headache, Denies sore throat - Breasts Breasts: bilateral: as per HPI - Cardiovascular Cardiovascular: Denies chest pain, Denies shortness of breath - Respiratory Respiratory: Denies cough - Gastrointestinal Comment: IBBS Gastrointestinal: Denies abdominal pain, Denies diarrhea, Denies nausea, Denies vomiting - Genitourinary (Female) Genitourinary: Denies dysuria, Denies hematuria - Menstruation Menstruation: Reports postmenopausal - Musculoskeletal Comment: right trigger thumb Musculoskeletal: Reports as per HPI, Reports myalgias - Integumentary Integumentary: Denies pruritus, Denies rash - Neurological Neurological: Denies numbness, Denies weakness - Psychiatric Psychiatric: Denies anxiety, Denies depression - Endocrine Comment: hypothyroid - Hematologic/Lymphatic Comment: none - Allergic/Immunologic Allergic/Immunologic: Reports as per HPI, Reports seasonal allergies Objective - Vital Signs Vital signs: Vital Signs Temp 98.9 F 02/27/22 14:27 Pulse 89 02/27/22 14:27 Resp 17 02/27/22 14:27 BP 131/83 02/27/22 14:27 Pulse Ox 97 02/27/22 14:27 FiO2 Intake & Output 02/26/22 02/27/22 02/27/22 18:59 06:59 18:59 Weight 77.564 kg - Constitutional General appearance: Present: cooperative - EENT Eyes: Present: EOMI ENT: Present: hearing grossly normal - Neck Neck: Present: normal ROM - Respiratory Respiratory: bilateral: CTA - Cardiovascular Rhythm: regular Heart sounds: normal: S1 - Integumentary Integumentary: Present: normal turgor - Musculoskeletal Musculoskeletal: Present: gait normal - Psychiatric Psychiatric: Present: A&O x's 3, appropriate affect, intact judgment & insight - Additional findings Additional findings: Breast Exam: Bra: 40C inspection: bilateral grade 2 ptosis palpation: Breasts: right breast: Multiple positional exam fibrocystic changes no dominant masses or nodules of concern Right axilla: No adenopathy. Left breast: Multiple positional exam fibrocystic changes no dominant masses or notches of concern Left axilla: No adenopathy of concern Assessment and Plan Assessment: Impression:
== END ==
LOC: WWCWWP 14:21
PROVIDERS: ATTEND Surgery
DX: R92.8 Other abnormal and inconclusive findings on diagnostic imaging of breast (principal); Z88.0 Allergy status to penicillin; Z88.2 Allergy status to sulfonamides

== ENCOUNTER → 2022-03-07 | Outpatient (CLI) | payer MEDICARE, OTHER ==
--- NOTE | 2022-03-10 07:38 | BD ---
EXAMINATION TYPE: Axial Bone Density DATE OF EXAM: 03/07/2022 COMPARISON: NONE CLINICAL HISTORY: 66 years year old Female. ICD-10 CODE: M85.88 DISRD OF BONE DENSITY AND STRUCTURE Height: 61 Weight: 174.4 FRAX RISK QUESTIONS: Alcohol (3 or more units per day): NO Family History (Parent hip fracture): FATHER AGE 90 Glucocorticoids (More than 3mos): NO History of Fracture in Adulthood: NO Secondary Osteoporosis: 1. Type 1 Diabetes: NO 2. Hyperthyroidism: NO 3. Menopause before 45: NO 4. Malnutrition: NO 5. Chronic liver disease: NO Rheumatoid Arthritis: NO Current Tobacco Use: NO RISK FACTORS HISTORY OF: Hip Fracture (Right/Left): NO Spine Fracture: NO History of Wrist Fracture: NO Surgery to Spine/Hip(right/left)/Wrist (right/left): NO Family History of Osteoporosis: NO Active: YES Diet low in dairy products/other sources of calcium: NO Postmenopausal woman: YES Take estrogen and/or progesterone medications: NO Lost more than 2 inches in height since high school: NO Frequent falls: NO Poor Health: NO Hyperparathyroidism: NO Adrenal Insufficiency: NO MEDICATIONS: Prednisone or other steroids: NO Thyroid Medications: SYNTHROID How Long: SINCE 2000 Osteoporosis Medications: NO Additional Medications: SYNTHROID, MULTI VIT, VIT D, B12, CALCIUM Additional History: EXAM MEASUREMENTS: Bone mineral densitometry was performed using the Qalendra System. Bone mineral density as measured about the Lumbar spine is: ----- L1-L4(G/cm2): 1.076 T Score Values are as follows: ----- L1: -1.2 ----- L2: -0.9 ----- L3: -0.9 ----- L4: -0.7 ----- L1-L4: -0.9 Bone mineral density has: INCREASED 2.4 % since study of: 12/20/2019 Bone mineral density about the R hip (g/cm2): 0.808 Bone mineral density about the L hip (g/cm2): 0.882 T Score values are as follows: -----R Neck: -1.7 -----L Neck: -1.1 -----R Total: -0.3 -----L Total: 0.2 Bone mineral density has: DECREASED -3.0 % since study of: 12/20/2019 FRAX%s: The graph provided illustrates a 16.1 chance for a major osteoporotic fx and a 2.0% chance fo r the hips probability for fx in 10 years time. IMPRESSION: Osteopenia (T Score between -2.5 and -1). There is slightly increased risk of fracture and the patient may be considered for treatment. Re-Screen 2-5 years. NOTE: T-SCORE=SD OF THE YOUNG ADULT MEAN.
== END | disposition home or self-care (01) ==
LOC: RADBDWWP 12:24
PROVIDERS: ATTEND Obstetrics & Gynecology
DX: M85.89 Other specified disorders of bone density and structure, multiple sites (principal)
CPT/HCPCS: 77080

== ENCOUNTER → 2022-10-30 | Outpatient (CLI) | payer MEDICARE ==
[2022-10-30 11:55] LABS: Chol/HDL Ratio 2.63 Ratio; LDL Cholesterol,Calculated 92.3 mg/dL (0.0-131.0); T4, Free (Free Thyroxine) 1.64 ng/dL (0.80-1.80)
== END | disposition home or self-care (01) ==
LOC: LABWHC1 07:18
PROVIDERS: ATTEND Family Medicine
DX: Z00.01 Encounter for general adult medical examination with abnormal findings (principal); Z11.59 Encounter for screening for other viral diseases; E03.8 Other specified hypothyroidism; M85.80 Other specified disorders of bone density and structure, unspecified site
CPT/HCPCS: 36415; 80061; 82306; 83036; 84439; 84443; 86803

== ENCOUNTER → 2023-02-20 | Outpatient (CLI) | payer MEDICARE ==
--- NOTE | 2023-02-23 09:15 | MM ---
Reason for Exam: Screening (asymptomatic). Last screening mammogram was performed 12 month(s) ago. Patient History: Menarche at age 11. First Full-Term at age 23. Postmenopausal. Benign Cyst Aspiration on the left side. 01/31/2021, Benign Core Biopsy on the left side. Maternal cousin had breast cancer, age 40. Maternal cousin had breast cancer at or over age 50. Mother had breast cancer, age 61. Risk Values: Maira 5 year model risk: 3.8%. NCI Lifetime model risk: 12.1%. Prior Study Comparison: 08/21/2017 Screening Mammogram, [facility]. 09/08/2018 Bilateral Screening Mammogram, [facility]. 09/14/2018 Left Diagnostic Mammogram, [facility]. 12/20/2019 Bilateral Screening Mammogram, [facility]. 12/20/2020 Bilateral Screening Mammogram, [facility]. 01/16/2021 Left Diagnostic Mammogram, [facility]. 07/26/2021 Left Diagnostic Mammogram, [facility]. 02/18/2022 Bilateral MG 3D screening mammo w/cad, [facility]. Tissue Density: The breast tissue is heterogeneously dense. This may lower the sensitivity of mammography. Findings: Analyzed By CAD. There is no suspicious group of microcalcifications or new suspicious mass in either breast. Chronic nodularity within the right breast. Biopsy clip within the left breast. Benign calcifications within both breasts. Overall Assessment: Benign, BI-RAD 2 Management: Screening Mammogram of both breasts in 1 year. A clinical breast exam by your physician is recommended on an annual basis and results should be correlated with mammographic findings. Note on Maira scores and lifetime risk: 1. A Maira score greater than 3% is considered moderate risk. If this is the case, consider specialist referral to assess eligibility for a risk reducing agent. If overall lifetime risk for the development of breast cancer is 20% or higher, the patient may qualify for future screening with alternating mammogram and breast MRI. Electronically signed and approved by: Festus Vogel D.O.
== END | disposition home or self-care (01) ==
LOC: RADMAMWWP 12:35
PROVIDERS: ATTEND Surgery
DX: Z12.31 Encounter for screening mammogram for malignant neoplasm of breast (principal); Z78.0 Asymptomatic menopausal state; Z80.3 Family history of malignant neoplasm of breast
CPT/HCPCS: 77063; 77067

== ENCOUNTER → 2023-02-27 | Outpatient (CLI) | payer MEDICARE ==
[2023-02-27 09:48] VITALS: BP 124/79; PULSE 67; RESP 18; TEMP 97.7
--- NOTE | 2023-02-27 09:57 | P.PN ---
Subjective Progress Note Date: 02/27/23 Principal diagnosis: fibrocystic breast changes fibrocystic breast changes Anneliese is a 67 year old white female status post stero biopsy of the left breast on 01-31-21 for microcalcifications. This was benign concordant. Anneliese is not complaining of any masses or nodules of concern in either breast. She had a bilateral mammogram performed on . This was a BIRADS 2. The patient has questioned the need for ultrasound of the breast, at this time it has not been recommended by radiology. Maira risk evaluation 5 year risk 3.8% Lifetime risk 12.1% We evaluated by Maira risk evaluation on evaluation the 5 year risk is 3.9% in the lifetime risk is 12.1%. Based on these numbers the patient has declined chemoprevention. Caffiene: 2 cups coffee/day nicotine: none chocolate: daily Family History: mother: 60's breast cancer 3 years later from [place] sister: Lobular carcinoma in situ maternal cousin: breast cancer DX in 42, had a recurrence in her 60's form this brother: bladder cancer in 70's maternal grandfather: cancer lung a smoker Hormonal History: menarche: 11 , breast fed: no, age at first : 23 menopause: 46 BCP: 5 years hormones: none Surgical history: Half of thyroid removed 3 Medical history: Trigger thumb hypothyroid left shoulder pain, getting physical therapy Social History: nicotine: stopped 2008; did smoke starting in high school for 8 years, and again at 39 for 10 years, about 1/PPD alcohol: rarely drugs: none - Constitutional Constitutional: Denies chills, Denies fever - EENT Eyes: denies blurred vision Ears: deny: decreased hearing, tinnitus Ears, nose, mouth and throat: Denies headache, Denies sore throat - Breasts Breasts: bilateral: as per HPI - Cardiovascular Cardiovascular: Denies chest pain, Denies shortness of breath - Respiratory Respiratory: Denies cough - Gastrointestinal Comment: IBBS Gastrointestinal: Denies abdominal pain, Denies diarrhea, Denies nausea, Denies vomiting - Genitourinary (Female) Genitourinary: Denies dysuria, Denies hematuria - Menstruation Menstruation: Reports postmenopausal - Musculoskeletal Comment: right trigger thumb Musculoskeletal: Reports as per HPI, Reports myalgias - Integumentary Integumentary: Denies pruritus, Denies rash - Neurological Neurological: Denies numbness, Denies weakness - Psychiatric Psychiatric: Denies anxiety, Denies depression - Endocrine Comment: hypothyroid - Hematologic/Lymphatic Comment: none - Allergic/Immunologic Allergic/Immunologic: Reports as per HPI, Reports seasonal allergies Objective - Vital Signs Vital signs: Vital Signs Temp 97.7 F 02/27/23 09:38 Pulse 67 02/27/23 09:38 Resp 18 02/27/23 09:38 BP 124/79 02/27/23 09:38 Pulse Ox 99 02/27/23 09:38 FiO2 Intake & Output 02/26/23 02/27/23 02/27/23 18:59 06:59 18:59 Weight 77.111 kg - Constitutional General appearance: Present: cooperative - EENT Eyes: Present: EOMI ENT: Present: hearing grossly normal - Neck Neck: Present: normal ROM - Respiratory Respiratory: bilateral: CTA - Cardiovascular Heart sounds: normal: S1, S2 - Integumentary Integumentary: Present: normal turgor - Musculoskeletal Musculoskeletal: Present: gait normal - Psychiatric Psychiatric: Present: A&O x's 3, appropriate affect, intact judgment & insight - Additional findings Additional findings: Breast Exam: Bra: 40C inspection: bilateral grade 2 ptosis palpation: Breasts: right breast: Multiple positional exam fibrocystic changes no dominant masses or nodules of concern Right axilla: No adenopathy. Left breast: Multiple positional exam fibrocystic changes no dominant masses or notches of concern Left axilla: No adenopathy of concern Assessment and Plan Assessment: Impression: Fibrocystic breast changes Plan: Repeat bilateral mammogram in 1 year with physician exam at that time High risk for breast cancer we've discussed chemoprevention the patient is declined at this time Patient will follow up sooner and her questions or concerns CC: DR. Fry
== END ==
LOC: WWCWWP 09:26
PROVIDERS: ATTEND Surgery
DX: Z12.31 Encounter for screening mammogram for malignant neoplasm of breast (principal); N60.19 Diffuse cystic mastopathy of unspecified breast; E03.9 Hypothyroidism, unspecified; Z87.891 Personal history of nicotine dependence; Z80.3 Family history of malignant neoplasm of breast; Z88.0 Allergy status to penicillin; Z88.2 Allergy status to sulfonamides; Z79.890 Hormone replacement therapy

== ENCOUNTER → 2023-11-13 | Outpatient (CLI) | payer MEDICARE ==
[2023-11-13 11:41] VITALS: BP 123/76; PULSE 64; RESP 16; TEMP 98.1
--- NOTE | 2023-11-13 11:57 | P.PN ---
Subjective Progress Note Date: 11/13/23 Principal diagnosis: fibrocystic breast changes 11-13-23 Principal diagnosis: fibrocystic breast changes Anneliese is a 68 year old white female status post stero biopsy of the left breast on 01-31-21 for microcalcifications. This was benign concordant. Anneliese is not complaining of any masses or nodules of concern in either breast. She had a bilateral mammogram performed on . This was a BIRADS 2. The patient has questioned the need for ultrasound of the breast, at this time it has not been recommended by radiology. She states about 6 weeks ago her left breast was "sore" then felt a crawling sensation in her breast. 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 She is uncertain as to what precipitated the soreness in her breast. She had no soreness in her right breast. The left breast is the one that she had a stereotactic core biopsy on in 2020. At this time the soreness has resolved. She has been under emotional stress, and this may be related to her symptoms. She is not complaining of any nipple discharge. She has not had any recent physical trauma or infection in the breast. Maira risk evaluation 5 year risk 3.8% Lifetime risk 12.1% We evaluated by Maira risk evaluation on evaluation the 5 year risk is 3.9% in the lifetime risk is 12.1%. Based on these numbers the patient has declined chemoprevention. Caffiene: 2 cups coffee/day nicotine: none chocolate: daily Family History: mother: 60's breast cancer 3 years later from [place] sister: Lobular carcinoma in situ maternal cousin: breast cancer DX in 42, had a recurrence in her 60's form this brother: bladder cancer in 70's maternal grandfather: cancer lung a smoker Hormonal History: menarche: 11 , breast fed: no, age at first : 23 menopause: 46 BCP: 5 years hormones: none Surgical history: Half of thyroid removed 3 Medical history: Trigger thumb hypothyroid left shoulder pain, getting physical therapy Social History: nicotine: stopped 2008; did smoke starting in high school for 8 years, and again at 39 for 10 years, about 1/PPD alcohol: rarely drugs: none - Constitutional Constitutional: Denies chills, Denies fever - EENT Eyes: denies blurred vision Ears: deny: decreased hearing, tinnitus Ears, nose, mouth and throat: Denies headache, Denies sore throat - Breasts Breasts: bilateral: as per HPI - Cardiovascular Cardiovascular: Denies chest pain, Denies shortness of breath - Respiratory Respiratory: Denies cough - Gastrointestinal Comment: IBBS Gastrointestinal: Denies abdominal pain, Denies diarrhea, Denies nausea, Denies vomiting - Genitourinary (Female) Genitourinary: Denies dysuria, Denies hematuria - Menstruation Menstruation: Reports postmenopausal - Musculoskeletal Comment: right trigger thumb Musculoskeletal: Reports as per HPI, Reports myalgias - Integumentary Integumentary: Denies pruritus, Denies rash - Neurological Neurological: Denies numbness, Denies weakness - Psychiatric Psychiatric: Denies anxiety, Denies depression - Endocrine Comment: hypothyroid - Hematologic/Lymphatic Comment: none - Allergic/Immunologic Allergic/Immunologic: Reports as per HPI, Reports seasonal allergies Objective - Vital Signs Vital signs: Vital Signs Temp 98.1 F 11/13/23 11:38 Pulse 64 11/13/23 11:38 Resp 16 11/13/23 11:38 BP 123/76 11/13/23 11:38 Pulse Ox 98 11/13/23 11:38 FiO2 Intake & Output 11/12/23 11/13/23 11/13/23 18:59 06:59 18:59 Weight 77.111 kg - Constitutional General appearance: Present: cooperative - EENT Eyes: Present: EOMI ENT: Present: hearing grossly normal - Neck Neck: Present: normal ROM - Respiratory Respiratory: bilateral: CTA - Cardiovascular Heart sounds: normal: S1, S2 - Integumentary Integumentary: Present: normal turgor - Musculoskeletal Musculoskeletal: Present: gait normal - Psychiatric Psychiatric: Present: A&O x's 3, appropriate affect, intact judgment & insight - Additional findings Additional findings: Breast Exam: Bra: 40C inspection: bilateral grade 2 ptosis palpation: Breasts: right breast: Multi-positional exam fibrocystic changes no dominant masses or nodules of concern Right axilla: No adenopathy. Left breast: Multi-positional exam fibrocystic changes no dominant of concern, there is some fullness in the upper inner and outer quadrants of the breast, the left breast is slightly more firm than the right breast Left axilla: No adenopathy of concern Assessment and Plan Assessment: Impression: Fibrocystic breast changes/ recent onset of mastodynia left breast Plan: left Breast ultrasound with follow-up after this Bilateral mammogram in February with follow-up CC: DR. Fry
== END ==
LOC: WWCWWP 10:51
PROVIDERS: ATTEND Surgery
DX: N60.11 Diffuse cystic mastopathy of right breast (principal); N60.12 Diffuse cystic mastopathy of left breast; N64.4 Mastodynia; Z80.3 Family history of malignant neoplasm of breast; Z88.0 Allergy status to penicillin; Z88.2 Allergy status to sulfonamides; Z87.891 Personal history of nicotine dependence

== ENCOUNTER → 2023-12-07 | Outpatient (CLI) | payer MEDICARE ==
--- NOTE | 2023-12-07 10:41 | USB ---
Reason for Exam: Clinical finding. Patient History: Menarche at age 11. First Full-Term at age 23. Postmenopausal. Benign Cyst Aspiration on the left side. 01/31/2021, Benign Core Biopsy on the left side. Maternal cousin had breast cancer, age 40. Maternal cousin had breast cancer at or over age 50. Mother had breast cancer, age 61. Risk Values: Maira 5 year model risk: 3.9%. NCI Lifetime model risk: 11.6%. Technique: Method: Whole Breast Handheld. Prior Study Comparison: 07/26/2021 Left Diagnostic Mammogram, [facility]. 02/18/2022 Bilateral MG 3D screening mammo w/cad, [facility]. 02/20/2023 Bilateral MG 3D screening mammo w/cad, [facility]. Findings: The whole breast of the left breast, the axilla of the left breast and the retroareolar of the left breast were scanned. Simple cyst noted at the left 3:00 position 3 cm from the nipple measuring 5 mm. Hyperechoic focus noted left periareolar region at the 6:00 position measuring 6 mm is felt to reflect a small lipoma. Normal-appearing left axillary lymph node. No suspicious appearing masses identified. Correlate clinically. Overall Assessment: Benign, BI-RAD 2 Management: Screening Mammogram of both breasts in 3 months. A clinical breast exam by your physician is recommended on an annual basis and results should be correlated with mammographic findings. This exam should not preclude additional follow-up of suspicious palpable abnormalities. Results were given to the patient verbally at the time of exam. Electronically signed and approved by: Ag Cotto M.D. Radiologis
== END | disposition home or self-care (01) ==
LOC: RADUSWWP 09:53
PROVIDERS: ATTEND Surgery
DX: N64.4 Mastodynia (principal); Z78.0 Asymptomatic menopausal state; Z80.3 Family history of malignant neoplasm of breast

== ENCOUNTER → 2023-12-11 | Outpatient (CLI) | payer MEDICARE ==
[2023-12-11 12:01] VITALS: BP 127/82; PULSE 77; RESP 17; TEMP 97.9
--- NOTE | 2023-12-11 12:09 | P.PN ---
Subjective Progress Note Date: 12/11/23 Principal diagnosis: fibrocystic breast changes fibrocystic breast changes 11-13-23 Principal diagnosis: fibrocystic breast changes Anneliese is a 68 year old white female status post stero biopsy of the left breast on 01-31-21 for microcalcifications. This was benign concordant. Anneliese is not complaining of any masses or nodules of concern in either breast. She had a bilateral mammogram performed on . This was a BIRADS 2. The patient has questioned the need for ultrasound of the breast, at this time it has not been recommended by radiology. She states about 6 weeks ago her left breast was "sore" then felt a crawling sensation in her breast. 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 She is uncertain as to what precipitated the soreness in her breast. She had no soreness in her right breast. The left breast is the one that she had a stereotactic core biopsy on in 2020. At this time the soreness has resolved. She has been under emotional stress, and this may be related to her symptoms. She is not complaining of any nipple discharge. She has not had any recent physical trauma or infection in the breast. Maira risk evaluation 5 year risk 3.8% Lifetime risk 12.1% We evaluated by Maira risk evaluation on evaluation the 5 year risk is 3.9% in the lifetime risk is 12.1%. Based on these numbers the patient has declined chemoprevention. 12-11-23 Patient had some soreness in her left breast about 2 months ago. THis has resolved. She was seen for this on 11-13-23 examination on 11-13-23 revealed some firmness in the left breast in the inner and outer quadrants no lesions of concern in the right breast ultrasound of the left breast 12-07-23 BIRAD 2 screening mammogram in 3months bilateral Caffiene: 2 cups coffee/day nicotine: none chocolate: daily Family History: mother: 60's breast cancer 3 years later from [facility] sister: Lobular carcinoma in situ maternal cousin: breast cancer DX in 42, had a recurrence in her 60's form this brother: bladder cancer in 70's maternal grandfather: cancer lung a smoker Hormonal History: menarche: 11 , breast fed: no, age at first : 23 menopause: 46 BCP: 5 years hormones: none Surgical history: Half of thyroid removed 3 Medical history: Trigger thumb hypothyroid left shoulder pain, getting physical therapy Social History: nicotine: stopped 2008; did smoke starting in high school for 8 years, and again at 39 for 10 years, about 1/PPD alcohol: rarely drugs: none - Constitutional Constitutional: Denies chills, Denies fever - EENT Eyes: denies blurred vision Ears: deny: decreased hearing, tinnitus Ears, nose, mouth and throat: Denies headache, Denies sore throat - Breasts Breasts: bilateral: as per HPI - Cardiovascular Cardiovascular: Denies chest pain, Denies shortness of breath - Respiratory Respiratory: Denies cough - Gastrointestinal Comment: IBBS Gastrointestinal: Denies abdominal pain, Denies diarrhea, Denies nausea, Denies vomiting - Genitourinary (Female) Genitourinary: Denies dysuria, Denies hematuria - Menstruation Menstruation: Reports postmenopausal - Musculoskeletal Comment: right trigger thumb Musculoskeletal: Reports as per HPI, Reports myalgias - Integumentary Integumentary: Denies pruritus, Denies rash - Neurological Neurological: Denies numbness, Denies weakness - Psychiatric Psychiatric: Denies anxiety, Denies depression - Endocrine Comment: hypothyroid - Hematologic/Lymphatic Comment: none - Allergic/Immunologic Allergic/Immunologic: Reports as per HPI, Reports seasonal allergies Examination: patient had exam 11-13-23 and not want it to be repeated today Plan: Mammogram in 3 months with examination at that time Patient will follow-up sooner if the breast pain recurs or she has any questions or concerns CC: Dr. Fry Objective - Vital Signs Vital signs: Vital Signs Temp 97.9 F 12/11/23 11:58 Pulse 77 12/11/23 11:58 Resp 17 12/11/23 11:58 BP 127/82 12/11/23 11:58 Pulse Ox 97 12/11/23 11:58 FiO2 Intake & Output 12/10/23 12/11/23 12/11/23 18:59 06:59 18:59 Weight 78.018 kg
== END ==
LOC: WWCWWP 10:27
PROVIDERS: ATTEND Surgery
DX: R92.8 Other abnormal and inconclusive findings on diagnostic imaging of breast (principal); R92.0 Mammographic microcalcification found on diagnostic imaging of breast; N60.11 Diffuse cystic mastopathy of right breast; N60.12 Diffuse cystic mastopathy of left breast; Z80.3 Family history of malignant neoplasm of breast; Z87.891 Personal history of nicotine dependence; Z88.0 Allergy status to penicillin; Z88.2 Allergy status to sulfonamides

== ENCOUNTER → 2024-01-15 | Outpatient (CLI) | payer MEDICARE ==
--- NOTE | 2024-01-15 11:31 | XR ---
EXAMINATION TYPE: XR cervical spine 3 views limited, XR Hip 2 views Bilateral and AP pelvis, XR lumba r spine 3V DATE OF EXAM: 01/15/2024 Comparison: None Clinical History: 68-year-old female M54.50 LOW BACK PAIN,M25.552 HIP PAIN,M50.20 CERVICAL DISC D Findings: Cervical spine: No predental space widening or prevertebral soft tissue swelling. Mild facet and uncovertebral joint arthropathy mid to lower cervical spine. Disc interspaces are maintained and alignment is preserved. Lumbar spine: Osteopenia. 5 lumbar type vertebral bodies. Mild multilevel degenerative disc disease. Facet arthropa thy mid to lower lumbar spine. Trace grade 1 retrolisthesis L1-L2 and L2-L3; trace grade 1 anterolist hesis L4-L5. Scattered mild degenerative disc disease especially lower thoracic and upper lumbar spin e. Pelvis and bilateral hips: SI joints appear symmetric and intact as does the pubic symphysis were mild degenerative changes pres ent. There is mild to moderate degenerative change in both hips with prominent marginal spurring but with relative preservation of hip joint space on both sides. No acute fracture, subluxation, dislocat ion. Impression: 1. Cervical spine: Mild facet and uncovertebral joint arthropathy mid to lower cervical spine. No pre vertebral soft tissue swelling or malalignment. 2. Lumbar spine: Scattered mild degenerative disc disease. Facet arthropathy lower lumbar spine. Trac e grade 1 spondylolisthesis L1-L2, L2-L3, and L4-L5. No vertebral compression collapse. 3. Pelvis and bilateral hips: Mild to moderate bilateral hip OA. No acute osseous abnormality seen.
[2024-01-15 15:57] LABS: Chol/HDL Ratio 2.39 Ratio; Rheumatoid Factor, Qnt 15 IU/mL (0-15); VLDL Calculation 14.36 mg/dL (5.00-40.00)
[2024-01-15 15:58] LABS: ALT 22 U/L (8-44); AST 17 U/L (13-35); Albumin/Globulin Ratio 1.74 Ratio (1.60-3.17); Alkaline Phosphatase 68 U/L (41-126); BUN/Creat Ratio 18.89 Ratio (12.00-20.00); Bilirubin, Conjugated <0.20 mg/dL (0.20-0.40); Bilirubin,Unconjugated >0.30 mg/dL (0.20-1.00); Calcium 9.5 mg/dL (8.7-10.3); Carbon Dioxide 24.4 mmol/L (21.6-31.8); Chloride 105 mmol/L (96-109); Globulin 2.3 g/dL (1.6-3.3); Glucose 85 mg/dL (70-110); Potassium 4.5 mmol/L (3.5-5.5); Sodium 141 mmol/L (135-145); T4, Free (Free Thyroxine) 1.33 ng/dL (0.80-1.80); Total Bilirubin 0.5 mg/dL (0.3-1.2); Total Protein 6.3 g/dL (6.2-8.2); Uric Acid 3.8 mg/dL (2.9-7.7)
[2024-01-15 16:17] LABS: Basophils # (A) 0.03 X 10*3/uL (0.00-0.10); Basophils % (A) 0.3 %; Eosinophils # (A) 0.15 X 10*3/uL (0.04-0.35); Eosinophils % (A) 1.5 %; HCT 37.7 % (37.2-46.3); HGB 12.2 g/dL (12.0-15.0); Lymphocytes # (A) 1.14 X 10*3/uL (0.90-5.00); Lymphocytes % (A) 11.7 %; MCH 29.5 pg (27.0-32.0); MCHC 32.4 g/dL (32.0-37.0); MCV 91.1 FL (80.0-97.0); Mean Platelet Volume 8.6 FL (9.5-12.2); Monocytes # (A) 0.55 X 10*3/uL (0.20-1.00); Monocytes % (A) 5.6 %; NRBC Per 100 WBC 0 X 10*3/uL (0.00-0.01); Neutrophils # (A) 7.84 X 10*3/uL (1.80-7.70); Neutrophils % (A) 80.6 %; Platelet Count 426 X 10*3/uL (140-440); RBC 4.14 X 10*6/uL (4.10-5.20); RDW 12.5 % (11.5-14.5); WBC 9.74 X 10*3/uL (4.50-10.00)
== END | disposition home or self-care (01) ==
LOC: LABWHC1 07:05
PROVIDERS: ATTEND Nurse Practitioner Family
DX: Z00.00 Encounter for general adult medical examination without abnormal findings (principal); E03.9 Hypothyroidism, unspecified; G89.29 Other chronic pain; M54.50 Low back pain, unspecified; M25.551 Pain in right hip; M50.20 Other cervical disc displacement, unspecified cervical region; M43.16 Spondylolisthesis, lumbar region; M47.812 Spondylosis without myelopathy or radiculopathy, cervical region; M47.816 Spondylosis without myelopathy or radiculopathy, lumbar region; M16.0 Bilateral primary osteoarthritis of hip; M25.552 Pain in left hip; Z79.899 Other long term (current) drug therapy
CPT/HCPCS: 36415; 72040; 72100; 73521; 80048; 80061; 80076; 84439; 84443; 84481; 84550; 85025; 86038; 86140; 86431

== ENCOUNTER → 2024-01-26 | Outpatient (CLI) | payer MEDICARE ==
[2024-01-26 18:02] LABS: HGB 11.2 g/dL (12.0-15.0); MCH 29.6 pg (27.0-32.0); MCHC 32.9 g/dL (32.0-37.0); MCV 89.7 FL (80.0-97.0); Mean Platelet Volume 8.5 FL (9.5-12.2); NRBC Per 100 WBC 0 X 10*3/uL (0.00-0.01); Platelet Count 561 X 10*3/uL (140-440); RBC 3.79 X 10*6/uL (4.10-5.20); RDW 12.3 % (11.5-14.5); WBC 11.96 X 10*3/uL (4.50-10.00)
[2024-01-26 18:17] LABS: Erythrocyte Sedimentation Rate 62 mm/Hr (0-30)
[2024-01-26 18:27] LABS: Creatine Kinase 63 U/L (26-186); Rheumatoid Factor, Qnt 15 IU/mL (0-15)
[2024-01-26 19:37] LABS: Streptolysin O Ab(ASO) <20 IntlUnit/L (0-200)
[2024-01-27 02:08] LABS: Cyclic Citrull Pep IgG Unit <1.5 U/mL (<=3.9); Cyclic Citrullinated Pep IgG Negative
[2024-01-27 08:03] LABS: HLA B27 NEGATIVE
[2024-01-27 11:52] LABS: Angiotensin-1 Converting Enz. 33 U/L (8-52)
== END | disposition home or self-care (01) ==
LOC: LABWHC1 14:18
PROVIDERS: ATTEND Orthopaedic Surgery
DX: M17.0 Bilateral primary osteoarthritis of knee (principal)
CPT/HCPCS: 36415; 82164; 82550; 83520; 84443; 85027; 85652; 86038; 86060; 86140; 86200; 86431; 86618; 86812

== ENCOUNTER → 2024-02-22 | Outpatient (CLI) | payer MEDICARE ==
--- NOTE | 2024-02-23 19:22 | MM ---
Reason for Exam: Screening (asymptomatic). Last screening mammogram was performed 12 month(s) ago. Patient History: Menarche at age 11. First Full-Term at age 23. Postmenopausal. Benign Cyst Aspiration on the left side. 01/31/2021, Benign Core Biopsy on the left side. Maternal cousin had breast cancer, age 40. Maternal cousin had breast cancer at or over age 50. Mother had breast cancer, age 61. Risk Values: Maira 5 year model risk: 3.9%. NCI Lifetime model risk: 11.6%. Prior Study Comparison: 07/26/2021 Left Diagnostic Mammogram, [facility]. 02/18/2022 Bilateral MG 3D screening mammo w/cad, [facility]. 02/20/2023 Bilateral MG 3D screening mammo w/cad, [facility]. Tissue Density: The breasts are heterogeneously dense, which may obscure small masses. Findings: Analyzed By CAD. Unchanged areas of asymmetric density in the left breast. Microclip. Related to prior biopsy. Chronic nodularity upper outer quadrant right breast. There is no suspicious group of microcalcifications or new suspicious mass in either breast. Overall Assessment: Benign, BI-RAD 2 Management: Screening Mammogram of both breasts in 1 year. See note below in regards to the patient's increased 5 year Maira score. Patient should continue monthly self-breast exams. A clinical breast exam by your physician is recommended on an annual basis. This exam should not preclude additional follow-up of suspicious palpable abnormalities. Note on Maira scores and lifetime risk: 1. A Maira score greater than 3% is considered moderate risk. If this is the case, consider specialist referral to assess eligibility for a risk reducing agent. 2. If overall lifetime risk for the development of breast cancer is 20% or higher, the patient may qualify for future screening with alternating mammogram and breast MRI. [facility], , 02/23/2024 7:18 PM. Electronically signed and approved by: Luz Marina Durham M.D. Radiologist
== END | disposition home or self-care (01) ==
LOC: RADMAMWWP 08:54
PROVIDERS: ATTEND Surgery
CPT/HCPCS: 77063; 77067

== ENCOUNTER → 2024-03-25 | Outpatient (CLI) | payer MEDICARE ==
--- NOTE | 2024-03-26 18:00 | BD ---
EXAMINATION TYPE: Axial Bone Density DATE OF EXAM: 03/25/2024 CLINICAL HISTORY: 68 years old Female. ICD-10 CODE: Z78.0 ASYMP [place] , Additional History: Height: 60.7 in Weight: 164 lbs FRAX RISK QUESTIONS: Family History (Parent hip fracture): yes father Secondary Osteoporosis: Rheumatoid Arthritis: yes MEDICATIONS: Thyroid Medications: yes Which medication: Synthroid How Lon+ years EXAM MEASUREMENTS: Bone mineral densitometry was performed using the [employer]. Bone mineral density as measured about the Lumbar spine is: ----- L1-L4(G/cm2): 1.035 T Score Values are as follows: ----- L1: -1.1 ----- L2: -0.5 ----- L3: -1.0 ----- L4: -2.2 ----- L1-L4: -1.2 Z Score Values are as follows: ----- L1: 0.3 ----- L2: 0.9 ----- L3: 0.4 ----- L4: -0.8 ----- L1-L4: 0.1 Bone mineral density has: Decreased -3.8% since study of: 03/07/2022 Bone mineral density about the R hip (g/cm2): 0.982 Bone mineral density about the L hip (g/cm2): 1.010 T Score values are as follows: -----R Neck: -1.3 -----L Neck: -1.2 -----R Total: -0.2 -----L Total: 0.0 Z Score values are as follows: -----R Neck: 0.2 -----L Neck: 0.2 -----R Total: 1.0 -----L Total: 1.2 Bone mineral density has: Decreased -0.6% since study of: 03/07/2022 FRAX%s: The graph provided illustrates a 14.2% chance for a major osteoporotic fx and a 2.3% chance f or the hips probability for fx in 10 years time. IMPRESSION: Osteopenia (T Score between -2.5 and -1). There is slightly increased risk of fracture and the patient may be considered for treatment. Re-Screen 2-5 years. NOTE: T-SCORE=SD OF THE YOUNG ADULT MEAN. [facility], , 03/26/2024 5:58 PM
== END | disposition home or self-care (01) ==
LOC: RADBDWWP 13:24
PROVIDERS: ATTEND Family Medicine
DX: Z78.0 Asymptomatic menopausal state (principal); M85.89 Other specified disorders of bone density and structure, multiple sites; M06.9 Rheumatoid arthritis, unspecified
CPT/HCPCS: 77080

== ENCOUNTER → 2024-03-25 | Outpatient (CLI) | payer MEDICARE ==
[2024-03-25 13:48] VITALS: BP 126/80; PULSE 101; RESP 16; TEMP 98.3
--- NOTE | 2024-03-25 14:32 | P.PN ---
Subjective Progress Note Date: 03/25/24 Principal diagnosis: fibrocystic breast changes 12/11/23 Principal diagnosis: fibrocystic breast changes Anneliese is a 68 year old white female status post stero biopsy of the left breast on 01-31-21 for microcalcifications. This was benign concordant. Anneliese is not complaining of any masses or nodules of concern in either breast. She had a bilateral mammogram performed on 02-22-24. This was BIRADS 2. ultrasound of the left breast 12-07-23 BIRAD 2 Planing of any new lumps masses or nodules of concern in either breast. Maira risk evaluation 5 year risk 3.9% Lifetime risk 11.6% We evaluated by Maira risk evaluation on evaluation the 5 year risk is 3.9% in the lifetime risk is 12.1%. Based on these numbers the patient has declined chemoprevention. Recently diagnosed with rheumoatoid arthritis and is started on methotrexate and folic acid and prednisone. Caffiene: 2 cups coffee/day nicotine: none chocolate: daily Family History: mother: 60's breast cancer 3 years later from [place] sister: Lobular carcinoma in situ maternal cousin: breast cancer DX in 42, had a recurrence in her 60's form this brother: bladder cancer in 70's maternal grandfather: cancer lung a smoker Hormonal History: menarche: 11 , breast fed: no, age at first : 23 menopause: 46 BCP: 5 years hormones: none Surgical history: Half of thyroid removed 3 Medical history: Trigger thumb hypothyroid left shoulder pain, getting physical therapy rheumatoid arthritis Social History: nicotine: stopped 2008; did smoke starting in high school for 8 years, and again at 39 for 10 years, about 1/PPD alcohol: rarely drugs: none - Constitutional Constitutional: Denies chills, Denies fever - EENT Eyes: denies blurred vision Ears: deny: decreased hearing, tinnitus Ears, nose, mouth and throat: Denies headache, Denies sore throat - Breasts Breasts: bilateral: as per HPI - Cardiovascular Cardiovascular: Denies chest pain, Denies shortness of breath - Respiratory Respiratory: Denies cough - Gastrointestinal Comment: IBBS Gastrointestinal: Denies abdominal pain, Denies diarrhea, Denies nausea, Denies vomiting - Genitourinary (Female) Genitourinary: Denies dysuria, Denies hematuria - Menstruation Menstruation: Reports postmenopausal - Musculoskeletal Comment: right trigger thumb Musculoskeletal: Reports as per HPI, Reports myalgias - Integumentary Integumentary: Denies pruritus, Denies rash - Neurological Neurological: Denies numbness, Denies weakness - Psychiatric Psychiatric: Denies anxiety, Denies depression - Endocrine Comment: hypothyroid - Hematologic/Lymphatic Comment: none - Allergic/Immunologic Allergic/Immunologic: Reports as per HPI, Reports seasonal allergies Objective - Vital Signs Vital signs: Vital Signs Temp 98.3 F 03/25/24 13:46 Pulse 101 H 03/25/24 13:46 Resp 16 03/25/24 13:46 BP 126/80 03/25/24 13:46 Pulse Ox 96 03/25/24 13:46 FiO2 Intake & Output 03/24/24 03/25/24 03/25/24 18:59 06:59 18:59 Weight 73.936 kg - Constitutional General appearance: Present: cooperative - EENT Eyes: Present: EOMI ENT: Present: hearing grossly normal - Neck Neck: Present: normal ROM - Respiratory Respiratory: bilateral: CTA - Cardiovascular Rhythm: regular Heart sounds: normal: S1, S2 - Integumentary Integumentary: Present: normal turgor - Musculoskeletal Musculoskeletal: Present: gait normal - Psychiatric Psychiatric: Present: A&O x's 3, appropriate affect, intact judgment & insight - Additional findings Additional findings: Breast Exam: BRA: 38C Inspection: Bilateral grade 2 ptosis Palpation: Right breast: Multi positional exam no dominant masses or nodules of concern Left breast: Multi positional exam no dominant masses or nodules of concern Right axilla: No adenopathy of concern Left axilla: No adenopathy of concern Assessment and Plan Assessment: Impression: Recent diagnosis of rheumatoid arthritis/patient presently on methotrexate/folic acid/prednisone Fibrocystic breast changes Bilateral mammogram from 02-22-2024 personally reviewed and interpreted BI-RADS 2 Plan: Repeat bilateral mammogram in 1 year with physician exam at that time Patient to follow-up sooner any questions or concerns Continue to follow with primary care doctor regarding medical condition CC: DR. Fry
== END ==
LOC: WWCWWP 13:26
PROVIDERS: ATTEND Surgery
DX: R92.8 Other abnormal and inconclusive findings on diagnostic imaging of breast (principal); N60.19 Diffuse cystic mastopathy of unspecified breast; M06.9 Rheumatoid arthritis, unspecified; Z80.3 Family history of malignant neoplasm of breast; Z87.891 Personal history of nicotine dependence; Z88.0 Allergy status to penicillin; Z88.2 Allergy status to sulfonamides